=== PATIENT | male | born 1960 ===

== ENCOUNTER 2016-12-17 16:49 | Emergency (ER) | payer OTHER ==
--- NOTE | 2016-12-17 17:27 | C.PDOC ---
History Of Present Illness 56-YEAR-OLD MALE, PRESENTS TO THE EMERGENCY DEPARTMENT WITH COMPLAINTS OF R EAR FOREIGN BODY SINCE YEST. PS COTTON TIP SWAB CAME OFF. NO PAIN, DC EXAM NAD HEENT R EAR +COTTON FB R EAR. NO CANAL BLEEDING, SWELLING Time Seen by Provider: 12/17/16 17:17 Chief Complaint (Nursing): ENT Problem History Per: Patient History/Exam Limitations: None Onset/Duration Of Symptoms: Days Current Symptoms Are (Timing): Still Present Past Medical History Reviewed: Historical Data, Nursing Documentation, Vital Signs Vital Signs: Last Vital Signs Temp 98.1 F 12/17/16 17:19 Pulse 59 L 12/17/16 17:19 Resp 15 12/17/16 17:19 BP 126/78 12/17/16 17:19 Pulse Ox 99 12/17/16 17:27 Family History: States: No Known Family Hx - Social History Hx Alcohol Use: No Hx Substance Use: No Review Of Systems Except As Marked, All Systems Reviewed And Found Negative. Constitutional: Negative for: Fever ENT: Positive for: Ear Pain Gastrointestinal: Negative for: Vomiting Musculoskeletal: Negative for: Back Pain Neurological: Negative for: Weakness, Numbness, Headache Physical Exam - Physical Exam Appears: Non-toxic, No Acute Distress Skin: Warm, Dry, No Rash Head: Atraumatic, Normacephalic Eye(s): bilateral: Normal Inspection Ear(s): Right: Other ( R EAR +COTTON FB R EAR. NO CANAL BLEEDING, SWELLING) Nose: Normal Oral Mucosa: Moist Lips: Normal Appearing Neck: Normal ROM Respiratory: No Accessory Muscle Use Extremity: Normal ROM Neurological/Psych: Oriented x3 ED Course And Treatment O2 Sat by Pulse Oximetry: 99 Disposition Counseled Patient/Family Regarding: Diagnosis, Need For Followup - Disposition Referrals: [facility] [Outside] [facility] [Outside] Disposition: HOME/ ROUTINE Disposition Time: 17:27 Condition: IMPROVED Instructions: Ear Foreign Body (ED) Forms: Crew (Mohawk) Print Language: MONTSERRATIAN - Clinical Impression Clinical Impression: Ear foreign body - Scribe Statement The provider has reviewed the documentation as recorded by the Scribe (Francisca Ricks) All medical record entries made by the Scribe were at my direction and personally dictated by me. I have reviewed the chart and agree that the record accurately reflects my personal performance of the history, physical exam, medical decision making, and the department course for this patient. I have also personally directed, reviewed, and agree with the discharge instructions and disposition. PROCEDURES - Foreign Body Removal Consent Obtained: verbal consent Time Out Performed: Yes Site: right, ear Description of foreign body: other (COTTON TIP) Sedation/Analgesia: none Technique: removal with forceps Confirmed by:: direct visualization Complications:: None Post-procedure exam: Awake, alert
[2016-12-17 17:29] VITALS: BP 126/78; PULSE 59; RESP 15; TEMP 98.1; O2SAT 99
== END 2016-12-17 17:48 | disposition home or self-care (01) ==
LOC: C.ER 16:49
DX: T16.1XXA Foreign body in right ear, initial encounter (principal); X58.XXXA Exposure to other specified factors, initial encounter